=== PATIENT | female | born 1970 | race Caucasian/White ===

== ENCOUNTER 2016-04-15 18:06 | Observation (INO) | payer OTHER ==
[~2016-04-15] VITALS: Ht 165.1 cm; Wt 114.0 kg
[~2016-04-15 18:06] MED LIST: ACETAMINOPHEN-1 EAC1 PO; ADVAIR 250/501 DISK IH; ADVANCED EYE H1 EACH PO; ALBUTEROL SULF8.5 GM IH; ALLERGY10 M2 PO; ALLERGY10 MG PO; ALPRAZOLAM0.25 M2 PO; AMITRIPTYLINE H75 MG PO; AMITRIPTYLINE100 MG PO; ATARAX10 MG PO; ATIVAN1 MG PO; AUGMENTIN875 MG PO; AVINZA30 MG PO; AVINZA90 MG PO; BACLOFEN10 MG PO; BACTRIM,SEPT1 TABLET PO; BENTYL20 MG PO; BUTALBITAL-APA1 EACH PO; CEFDINIR300 MG PO; CEFUROXIME500 MG PO; CHERATUSSIN DA473 ML PO; CHILD ASPIRIN81 M1 PO; CIPROFLOXACIN500 M1 PO; CLARITIN-D 121 EACH PO; CLARITIN10 M3 PO; CLARITIN10 MG PO; COLACE100 MG PO; CYANOCOBALAM1000 MCG; CYCLOBENZAPRINE10 MG PO; Claritin,Alavart PO; DAILY VALUE1 EACH PO; DESYREL100 MG PO; DIAZEPAM2 MG PO; DILAUDID2 MG PO; DILAUDID4 MG PO; DILAUDID8 MG PO; DIOVAN HCT 11 TABLE1; DIOVAN HCT 11 TABLE1 PO; DIOVAN HCT 1601 EAC1 PO; DURAGESIC25 MCG TD; DURAGESIC75 MCG TD; ELAVIL100 MG PO; ELAVIL75 MG PO; Ecotrin PO; Elavil PO; FENOFIBRATE54 M1; FENTANYL1 EAC2 TD; FENTANYL1 EAC4 TD; FIORICET 50-301 EACH PO; FIORICET,ESG1 TABLET PO; FISH OIL 1,0001 EAC1 PO; FISH OIL 1,0001 EAC7 PO; FISH OIL 1,0001 EAC8 PO; FISH OIL 1,0001 EACH PO; FLAGYL250 MG PO; FLEXERIL10 MG PO; FLONASE16 G1 BOTH NARES; FLONASE16 G1 NS; FLOVENT DISKUS1 DIS2 IH; FLUOXETINE HCL20 MG PO; FLUOXETINE HCL40 MG PO; FLUTICASONE PRO16 GM BOTH NARES; GABAPENTIN300 MG PO; GABAPENTIN400 MG PO; GABAPENTIN600 MG PO; GABAPENTIN800 MG PO; GRALISE300 MG PO; HEPARIN SO5000 UNITS SC; HYDROCHLOROTHIA25 MG PO; HYDROMORPHONE HC4 MG PO; HYDROXYZINE HCL25 M1 PO; IMITREX25 MG PO; KADIAN30 MG PO; KADIAN60 MG PO; LEVAQUIN750 MG PO; LOFIBRA,TRIGLI160 MG PO; LOPRESSOR50 MG PO; LORATADINE; MAXIPIME1 GM IM; MAXIPIME2 GM IV; MEDROL 2 MG TAB2 MG PO; MEDROL DOSEPAK4 MG PO; MELATONIN3 MG PO; METFORMIN; METFORMIN HCL500 MG PO; METOPROLOL SUC100 MG PO; METOPROLOL SUCC50 MG PO; METOPROLOL TART50 MG PO; MIRALAX17 GM PO; MIRALAX255 GM PO; MORPHINE SULFAT15 M1 PO; MORPHINE SULFAT30 M1 PO; MORPHINE SULFAT30 M2; MORPHINE SULFAT30 M2 PO; MORPHINE SULFAT30 M5 PO; MS CONTIN,ORAMO30 MG PO; MULTI-DAY VITA1 EACH PO; MULTIVITAMIN1 EAC1 PO; MULTIVITAMIN1 EAC2 PO; NEURONTIN300 MG PO; NEURONTIN400 MG PO; NEURONTIN600 MG PO; NEURONTIN800 MG PO; NEXIUM40 MG PO; NITROFURANTOIN100 MG PO; NUCYNTA75 MG; OMEPRAZOLE; OMEPRAZOLE20 M2 PO; OMEPRAZOLE20 MG; OMEPRAZOLE20 MG PO; OMEPRAZOLE40 M1 PO; OXYCODONE HCL15 MG PO; OXYCODONE HCL30 MG PO; OXYCODONE15 MG PO; OXYCODONE30 MG PO; OXYCONTIN15 MG PO; OXYCONTIN30 MG PO; PHENERGAN DM SYR1 ML PO; PHENERGAN25 MG PR; POLYETHYLENE GL17 GM PO; PRAVASTATIN SOD40 MG PO; PREDNISONE10 MG PO; PREDNISONE20 MG PO; PREVACID; PRILOSEC40 MG PO; PROMETHAZINE HC25 M1 PO; PROTONIX40 MG PO; PROVENTIL,2.5 MG/3 M IH; PROZAC20 MG PO; PROZAC40 MG PO; PROzac PO; PYRIDIUM100 MG PO; RANITIDINE HCL150 M1 PO; REQUIP1 MG PO; RIFADIN300 MG PO; RIFAMPIN300 MG PO; ROPINIROLE HC0.25 MG PO; ROXICODONE30 MG PO; ROZEREM8 MG PO; Requip PO; SARAFEM20 M1 PO; SENNA8.6 M1 PO; SOMA350 MG; SYNTHROID75 MCG PO; TESSALON PERLE100 MG PO; THERAGRAN1 TABLET PO; TIZANIDINE HCL4 MG PO; TIZANIDINE HCL6 MG PO; TOPAMAX100 MG PO; TOPAMAX25 MG PO; TOPAMAX50 MG PO; TOPROL XL100 MG PO; TRAZODONE HCL150 MG PO; TRAZODONE HCL50 MG PO; TRICOR; TYLENOL REGULA325 MG PO; ULTRAM50 MG PO; VALIUM10 MG PO; VALIUM2 MG PO; VALIUM5 MG PO; VANCOMYCIN HCL1 GM IV; VANCOMYCIN1 GM/150 M IV; VANCOMYCIN1.25 GM/25 IV; VITAMIN B-12 IM; VITAMIN B-121000 MC1 SL; VITAMIN B12-FO1 EACH PO; VITAMIN B12-FO1 EACH SC; VITAMIN D2000 INTUN PO; XANAX0.25 MG PO; XARELTO15 MG PO; ZANAFLEX2 M1 PO; ZANAFLEX4 M1 PO; ZANAFLEX4 MG PO; ZITHROMAX Z-PA250 MG PO; ZOFRAN ODT4 MG PO; ZOFRAN4 MG PO; ZYRTEC10 M3 PO; Zantac PO; Zithromax PO; oxyCODONE PO
[2016-04-15 19:01] LABS: HEMATOCRIT 40.1 % (36.0-46.0); MCH 31.9 PG (29.0-34.0); MCHC 34.2 G/DL (30.0-36.0); MCV 93.3 FL (83-99); MEAN PLAT.VOLUME 9.1 uM^3 (9.5-12.4); PLATELET COUNT 325 K/uL (156-360); RBC DIS.WIDTH-CV 12.5 % (11.8-14.6); RBC DIS.WIDTH-SD 41.2 % (39-53); WHITE BLOOD COUNT 6.7 K/uL (4.1-10.2)
[2016-04-15 19:12] LABS: CHLORIDE 105 mEq/L (99-109); POTASSIUM 4.4 mEq/L (3.7-5.4); SODIUM 139 mEq/L (136-147)
[2016-04-15 19:14] LABS: GLUCOSE 130 mg/dL (70-99)
[2016-04-15 19:15] LABS: ANION GAP 9 MEQ/L (2-14)
[2016-04-15 19:17] LABS: GFR ESTIMATE (CALCULATED) > 59 mL/min/
[2016-04-15 19:18] LABS: UREA NITROGEN (BUN) 11 mg/dL (9-23)
[2016-04-15 19:45] LABS: TROP-I INTERPRETATION NEGATIVE; TROPONIN-I < 0.01 ng/mL (0.0-0.30)
[2016-04-15 20:16] LABS: INFLUENZA A VIRAL ANTIGEN NEGATIVE; INFLUENZA B VIRAL ANTIGEN NEGATIVE
[2016-04-15 22:33] LABS: ADD MIUA? YES; BILIRUBIN NEGATIVE; BLOOD NEGATIVE; COLOR YELLOW ((YELLOW)); GLUCOSE (STRIP) NEGATIVE; KETONES TRACE; LEUKOCYTES NEGATIVE; NITRITE NEGATIVE; PROTEIN (STRIP) 30; SPECIFIC GRAVITY 1.025 (1.000-1.030); UROBILINOGEN 0.2 MG/DL (0.2-1.0)
[2016-04-15 22:55] LABS: EPITHELIAL CELLS 3+; RED BLOOD CELLS NONE SEEN /HPF (0-5); WHITE BLOOD CELLS NONE SEEN /HPF (0-5)
[2016-04-15 22:56] LABS: BACTERIA RARE; CASTS NONE SEEN /LPF; CRYSTALS NONE SEEN; MUCUS NONE SEEN
[2016-04-16 01:14] LABS: TROP-I INTERPRETATION NEGATIVE; TROPONIN-I < 0.01 ng/mL (0.0-0.30)
[2016-04-16 06:30] LABS: HEMATOCRIT 39.2 % (36.0-46.0); MCH 31.3 PG (29.0-34.0); MCHC 33.4 G/DL (30.0-36.0); MCV 93.6 FL (83-99); MEAN PLAT.VOLUME 9.4 uM^3 (9.5-12.4); PLATELET COUNT 321 K/uL (156-360); RBC DIS.WIDTH-CV 12.7 % (11.8-14.6); RBC DIS.WIDTH-SD 42.1 % (39-53); RED BLOOD COUNT 4.19 M/uL (3.80-5.20); WHITE BLOOD COUNT 8.6 K/uL (4.1-10.2)
[2016-04-16 06:51] LABS: CHLORIDE 106 mEq/L (99-109); POTASSIUM 3.8 mEq/L (3.7-5.4); SODIUM 138 mEq/L (136-147)
[2016-04-16 06:52] LABS: GLUCOSE 104 mg/dL (70-99)
[2016-04-16 06:54] LABS: ANION GAP 11 MEQ/L (2-14); TROP-I INTERPRETATION NEGATIVE; TROPONIN-I < 0.01 ng/mL (0.0-0.30)
[2016-04-16 06:56] LABS: GFR ESTIMATE (CALCULATED) > 59 mL/min/
[2016-04-16 06:57] LABS: UREA NITROGEN (BUN) 11 mg/dL (9-23)
[2016-04-16 07:15] VITALS: BP 143/74
[2016-04-16] MEDS ORDERED: ZANAFLEX4 M1 PO (13:39)
[2016-04-16] MEDS ORDERED: OXYCODONE HCL30 MG PO (13:41)
[2016-04-16 16:28] VITALS: BP 139/64
[2016-04-16 21:36] VITALS: BP 141/70
[2016-04-17] VITALS: BP 161/99
[2016-04-17 04:45] VITALS: BP 131/74
[2016-04-17 06:25] LABS: METH RESISTANT S AUREUS PCR NEGATIVE (NEGATIVE)
[2016-04-17 06:26] LABS: PROBE CHECK PASS; SPECIMEN PROCESSING CONTROL PASS
[2016-04-17 07:58] VITALS: BP 145/75
[2016-04-17] MEDS ORDERED: CEFDINIR300 MG PO (11:11)
[2016-04-17] MEDS ORDERED: OMEPRAZOLE20 MG PO (11:11)
== END 2016-04-17 12:05 | disposition home or self-care (01) ==
LOC: EME → EDBD 18:06 → EME 18:06 → 5WEST 21:45 → EDOF 21:45 → 5WEST 04-16 06:58
PROVIDERS: Hospitalist; Nurse Practitioner Family
DX: R10.9 Unspecified abdominal pain (principal); R55 Syncope and collapse; R11.2 Nausea with vomiting, unspecified; R07.9 Chest pain, unspecified; I25.2 Old myocardial infarction; Z86.73 Personal history of transient ischemic attack (TIA), and cerebral infarction without residual deficits; G89.4 Chronic pain syndrome; Z79.891 Long term (current) use of opiate analgesic; R19.7 Diarrhea, unspecified; M54.9 Dorsalgia, unspecified; K58.9 Irritable bowel syndrome, unspecified; E86.0 Dehydration; I10 Essential (primary) hypertension; E11.9 Type 2 diabetes mellitus without complications; Z86.14 Personal history of Methicillin resistant Staphylococcus aureus infection; Z86.718 Personal history of other venous thrombosis and embolism; E24.2 Drug-induced Cushing's syndrome; Z88.8 Allergy status to other drugs, medicaments and biological substances; Z81.8 Family history of other mental and behavioral disorders
CPT/HCPCS: 70450; 71020; 74177; 80048; 81003; 84484; 85027; 87177; 87493; 87502; 87506; 87641; 93005; 93880; 94640; 99202; 99281; 99285; G0378; J2270; J2405; J7030; J7120; S0028

== ENCOUNTER 2016-06-25 16:56 | Emergency (ER) | payer OTHER ==
[~2016-06-25] VITALS: Ht 172.7 cm; Wt 113.6 kg
[2016-06-25 17:59] LABS: HEMATOCRIT 36.1 % (36.0-46.0); MCH 30.6 PG (29.0-34.0); MCHC 32.7 G/DL (30.0-36.0); MCV 93.5 FL (83-99); MEAN PLAT.VOLUME 9.5 uM^3 (9.5-12.4); PLATELET COUNT 277 K/uL (156-360); RBC DIS.WIDTH-CV 12.9 % (11.8-14.6); RED BLOOD COUNT 3.86 M/uL (3.80-5.20); WHITE BLOOD COUNT 8.1 K/uL (4.1-10.2)
[2016-06-25 18:06] LABS: CHLORIDE 103 mEq/L (99-109); POTASSIUM 4.4 mEq/L (3.7-5.4); SODIUM 137 mEq/L (136-147)
[2016-06-25 18:08] LABS: GLUCOSE 100 mg/dL (70-99)
[2016-06-25 18:10] LABS: ANION GAP 11 MEQ/L (2-14); TOTAL BILIRUBIN 0.3 mg/dL (0.0-1.0)
[2016-06-25 18:12] LABS: ALKALINE PHOSPHATASE 77 IU/L (3-129); GFR ESTIMATE (CALCULATED) 47 mL/min/
[2016-06-25 18:13] LABS: UREA NITROGEN (BUN) 16 mg/dL (9-23)
[2016-06-25 18:23] LABS: QUANTITATIVE HCG < 4.0 MIU/ML
[2016-06-25 18:39] LABS: LIPASE 11 U/L (1.0-51.0)
[2016-06-25 20:20] LABS: ADD MIUA? NO; BILIRUBIN NEGATIVE; BLOOD NEGATIVE; COLOR YELLOW ((YELLOW)); GLUCOSE (STRIP) NEGATIVE; KETONES NEGATIVE; LEUKOCYTES NEGATIVE; NITRITE NEGATIVE; PROTEIN (STRIP) NEGATIVE; SPECIFIC GRAVITY 1.016 (1.000-1.030); UCUL ADDED? NO; UROBILINOGEN 0.2 MG/DL (0.2-1.0)
[2016-06-25] MEDS ORDERED: PERCOCET 5/31 TABLET PO (20:40)
[2016-06-25] MEDS ORDERED: CARAFATE1 GM PO (20:40)
[2016-06-25] MEDS ORDERED: ZOFRAN ODT8 MG PO (20:40)
[2016-06-25] MEDS ORDERED: PROTONIX40 MG PO (20:40)
[2016-06-25 21:13] VITALS: BP 129/50
== END 2016-06-25 21:14 | disposition home or self-care (01) ==
LOC: EME 16:56
DX: K20.9 Esophagitis, unspecified (principal); K21.9 Gastro-esophageal reflux disease without esophagitis; E78.5 Hyperlipidemia, unspecified; E24.9 Cushing's syndrome, unspecified; I10 Essential (primary) hypertension; G89.29 Other chronic pain; M79.7 Fibromyalgia; I25.2 Old myocardial infarction; Z86.14 Personal history of Methicillin resistant Staphylococcus aureus infection; Z85.828 Personal history of other malignant neoplasm of skin
CPT/HCPCS: 70450; 74177; 80053; 81003; 83605; 83690; 84702; 85027; 99281; 99285; J2270; J2405; J7030; S0028

== ENCOUNTER 2016-07-22 20:50 | Emergency (ER) | payer OTHER ==
[~2016-07-22] VITALS: Ht 165.1 cm; Wt 109.0 kg
[~2016-07-22 20:50] MED LIST changes: +CARAFATE1 GM PO; +PERCOCET 5/31 TABLET PO; +ZOFRAN ODT8 MG PO
[2016-07-22 21:19] LABS: POINT-OF-CARE METER ID UU13113778
[2016-07-22 21:55] LABS: HEMATOCRIT 35.5 % (36.0-46.0); MCH 30.3 PG (29.0-34.0); MCHC 31.8 G/DL (30.0-36.0); MCV 95.2 FL (83-99); MEAN PLAT.VOLUME 9.3 uM^3 (9.5-12.4); PLATELET COUNT 223 K/uL (156-360); RBC DIS.WIDTH-CV 13.4 % (11.8-14.6); RBC DIS.WIDTH-SD 46.6 % (39-53); RED BLOOD COUNT 3.73 M/uL (3.80-5.20)
[2016-07-22 21:56] LABS: WHITE BLOOD COUNT 5.6 K/uL (4.1-10.2)
[2016-07-22 22:01] LABS: CHLORIDE 108 mEq/L (99-109); POTASSIUM 4.6 mEq/L (3.7-5.4); SODIUM 142 mEq/L (136-147)
[2016-07-22 22:03] LABS: GLUCOSE 103 mg/dL (70-99)
[2016-07-22 22:04] LABS: ANION GAP 9 MEQ/L (2-14)
[2016-07-22 22:07] LABS: GFR ESTIMATE (CALCULATED) > 59 mL/min/
[2016-07-22 22:08] LABS: UREA NITROGEN (BUN) 17 mg/dL (9-23)
[2016-07-23 00:27] VITALS: BP 144/88
== END 2016-07-23 00:29 | disposition home or self-care (01) ==
LOC: EME 20:50
PROVIDERS: Emergency Medicine
DX: T78.40XA Allergy, unspecified, initial encounter (principal); G89.29 Other chronic pain; M79.7 Fibromyalgia; E78.5 Hyperlipidemia, unspecified; I10 Essential (primary) hypertension; I25.2 Old myocardial infarction; K21.9 Gastro-esophageal reflux disease without esophagitis; E24.9 Cushing's syndrome, unspecified; Z85.828 Personal history of other malignant neoplasm of skin
CPT/HCPCS: 80048; 82948; 85027; 93005; 99281; 99285; J2930; S0028

== ENCOUNTER 2016-08-08 01:53 | Emergency (ER) | payer OTHER ==
[~2016-08-08] VITALS: Ht 165.1 cm; Wt 109.1 kg
[2016-08-08 02:42] LABS: HEMATOCRIT 42.9 % (36.0-46.0); MCH 30.5 PG (29.0-34.0); MCHC 33.3 G/DL (30.0-36.0); MCV 91.5 FL (83-99); MEAN PLAT.VOLUME 9.4 uM^3 (9.5-12.4); PLATELET COUNT 356 K/uL (156-360); RBC DIS.WIDTH-CV 13.4 % (11.8-14.6); RBC DIS.WIDTH-SD 45.1 % (39-53); RED BLOOD COUNT 4.69 M/uL (3.80-5.20); WHITE BLOOD COUNT 8.5 K/uL (4.1-10.2)
[2016-08-08 02:48] LABS: CHLORIDE 103 mEq/L (99-109); POTASSIUM 4.5 mEq/L (3.7-5.4); SODIUM 140 mEq/L (136-147)
[2016-08-08 02:50] LABS: GLUCOSE 120 mg/dL (70-99)
[2016-08-08 02:51] LABS: ANION GAP 13 MEQ/L (2-14)
[2016-08-08 02:54] LABS: GFR ESTIMATE (CALCULATED) > 59 mL/min/
[2016-08-08 02:55] LABS: UREA NITROGEN (BUN) 11 mg/dL (9-23)
[2016-08-08 02:56] LABS: TROP-I INTERPRETATION NEGATIVE; TROPONIN-I < 0.01 ng/mL (0.0-0.30)
[2016-08-08] MEDS ORDERED: VALIUM5 MG PO (05:50)
[2016-08-08 06:07] VITALS: BP 116/63
== END 2016-08-08 05:59 | disposition home or self-care (01) ==
LOC: EME 01:53
DX: R07.89 Other chest pain (principal); M62.838 Other muscle spasm; M79.7 Fibromyalgia; E78.5 Hyperlipidemia, unspecified; I10 Essential (primary) hypertension; I25.2 Old myocardial infarction; K21.9 Gastro-esophageal reflux disease without esophagitis
CPT/HCPCS: 70491; 71020; 71275; 80048; 84484; 85027; 93005; 99281; 99285; J1100; J7030

== ENCOUNTER 2016-08-15 12:13 | Emergency (ER) | payer OTHER ==
[~2016-08-15] VITALS: Ht 165.1 cm; Wt 120.1 kg
[2016-08-15 12:54] LABS: EOSINOPHIL (%) 2.6 % (0-5); EOSINOPHIL COUNT 0.2 K/uL (0-0.3); HEMATOCRIT 36.2 % (36.0-46.0); IMMATURE GRANULOCYTE (%) 0.3 % (0.0-0.7); INSTRUMENT ABS NEUTROPHIL CT 2.9 K/uL; LYMPHOCYTE COUNT 2.7 K/uL (1.0-2.8); MCH 30.3 PG (29.0-34.0); MCV 94.5 FL (83-99); MEAN PLAT.VOLUME 9.4 uM^3 (9.5-12.4); MONOCYTE (%) 5.7 % (3-12); MONOCYTE COUNT 0.4 K/uL (0-0.8); NEUTROPHIL (%) 46.6 % (45-76); NEUTROPHIL COUNT 2.9 K/uL (1.8-6.4); PLATELET COUNT 252 K/uL (156-360); RBC DIS.WIDTH-CV 13.9 % (11.8-14.6); RBC DIS.WIDTH-SD 48.1 % (39-53); RED BLOOD COUNT 3.83 M/uL (3.80-5.20); WHITE BLOOD COUNT 6.2 K/uL (4.1-10.2)
[2016-08-15 12:58] LABS: CHLORIDE 106 mEq/L (99-109); POTASSIUM 4.5 mEq/L (3.7-5.4); SODIUM 139 mEq/L (136-147)
[2016-08-15 12:59] LABS: GLUCOSE 123 mg/dL (70-99)
[2016-08-15 13:01] LABS: ANION GAP 11 MEQ/L (2-14)
[2016-08-15 13:03] LABS: GFR ESTIMATE (CALCULATED) > 59 mL/min/
[2016-08-15 13:04] LABS: UREA NITROGEN (BUN) 20 mg/dL (9-23)
[2016-08-15 13:08] LABS: TROP-I INTERPRETATION NEGATIVE; TROPONIN-I < 0.01 ng/mL (0.0-0.30)
[2016-08-15 17:40] VITALS: BP 126/79
[2016-08-21 11:10] LABS: POINT-OF-CARE METER ID UU14100415
== END 2016-08-15 17:44 | disposition home or self-care (01) ==
LOC: EME → EDBD 12:13 → EME 12:13
PROVIDERS: Emergency Medicine
DX: S09.90XA Unspecified injury of head, initial encounter (principal); S40.011A Contusion of right shoulder, initial encounter; S70.02XA Contusion of left hip, initial encounter; W18.30XA Fall on same level, unspecified, initial encounter; M79.7 Fibromyalgia; E78.5 Hyperlipidemia, unspecified; I10 Essential (primary) hypertension; I25.2 Old myocardial infarction; K21.9 Gastro-esophageal reflux disease without esophagitis
CPT/HCPCS: 70450; 71010; 72125; 73030; 73060; 73502; 80048; 82948; 84484; 85025; 93005; 99281; 99285; J7030

== ENCOUNTER 2016-09-13 15:10 | Emergency (ER) | payer OTHER ==
[~2016-09-13] VITALS: Ht 165.1 cm; Wt 120.1 kg
[2016-09-13 16:41] LABS: ADD MIUA? YES; BILIRUBIN NEGATIVE; BLOOD NEGATIVE; COLOR YELLOW ((YELLOW)); GLUCOSE (STRIP) NEGATIVE; KETONES NEGATIVE; LEUKOCYTES NEGATIVE; NITRITE NEGATIVE; PROTEIN (STRIP) 30; UROBILINOGEN 0.2 MG/DL (0.2-1.0)
[2016-09-13 17:06] LABS: HEMATOCRIT 37.1 % (36.0-46.0); MCH 30.7 PG (29.0-34.0); MCHC 32.6 G/DL (30.0-36.0); MCV 94.2 FL (83-99); MEAN PLAT.VOLUME 9.1 uM^3 (9.5-12.4); PLATELET COUNT 233 K/uL (156-360); RBC DIS.WIDTH-CV 13.2 % (11.8-14.6); RBC DIS.WIDTH-SD 45.5 % (39-53); RED BLOOD COUNT 3.94 M/uL (3.80-5.20); WHITE BLOOD COUNT 6.8 K/uL (4.1-10.2)
[2016-09-13 17:14] LABS: CHLORIDE 101 mEq/L (99-109); POTASSIUM 4.5 mEq/L (3.7-5.4); SODIUM 139 mEq/L (136-147)
[2016-09-13 17:15] LABS: EPITHELIAL CELLS 1+ /HPF; RED BLOOD CELLS 0-5 /HPF (0-5); WHITE BLOOD CELLS 0-5 /HPF (0-5)
[2016-09-13 17:16] LABS: BACTERIA 1+ /HPF; CASTS PRESENT /LPF; CRYSTALS PRESENT; MUCUS 3+ /LPF
[2016-09-13 17:17] LABS: URIC ACID CRYSTALS 2+ /HPF
[2016-09-13 17:17] LABS: GLUCOSE 103 mg/dL (70-99)
[2016-09-13 17:18] LABS: ANION GAP 12 MEQ/L (2-14)
[2016-09-13 17:19] LABS: TOTAL BILIRUBIN 0.2 mg/dL (0.0-1.0)
[2016-09-13 17:20] LABS: ALKALINE PHOSPHATASE 87 IU/L (3-129); GFR ESTIMATE (CALCULATED) > 59 mL/min/
[2016-09-13 17:21] LABS: UREA NITROGEN (BUN) 11 mg/dL (9-23)
[2016-09-13] MEDS ORDERED: ZOFRAN ODT4 MG PO (18:37)
[2016-09-13 19:58] VITALS: BP 110/67
== END 2016-09-13 20:00 | disposition home or self-care (01) ==
LOC: EME 15:10
PROVIDERS: Nurse Practitioner Family
DX: R55 Syncope and collapse (principal); R11.2 Nausea with vomiting, unspecified; I10 Essential (primary) hypertension; Z90.49 Acquired absence of other specified parts of digestive tract; Z90.710 Acquired absence of both cervix and uterus; Z86.14 Personal history of Methicillin resistant Staphylococcus aureus infection
CPT/HCPCS: 80053; 81003; 85027; 93005; 99281; 99284; J2405; J7030

== ENCOUNTER 2016-10-12 18:46 | Emergency (ER) | payer OTHER ==
[~2016-10-12] VITALS: Ht 165.1 cm; Wt 109.1 kg
[2016-10-12 20:56] LABS: MCH 31.5 PG (29.0-34.0); MCHC 33.4 G/DL (30.0-36.0); MCV 94.3 FL (83-99); PLATELET COUNT 253 K/uL (156-360); RBC DIS.WIDTH-CV 13.2 % (11.8-14.6); RBC DIS.WIDTH-SD 45.3 % (39-53); RED BLOOD COUNT 3.71 M/uL (3.80-5.20); WHITE BLOOD COUNT 4.8 K/uL (4.1-10.2)
[2016-10-12 21:03] LABS: PROTHROMBIN TIME 11.3 SEC (10.2-12.9)
[2016-10-12 21:06] LABS: PTT 32.1 SEC (25-37)
[2016-10-12 21:11] LABS: CHLORIDE 106 mEq/L (99-109); POTASSIUM 4.1 mEq/L (3.7-5.4); SODIUM 141 mEq/L (136-147)
[2016-10-12 21:12] LABS: GLUCOSE 98 mg/dL (70-99)
[2016-10-12 21:14] LABS: ANION GAP 11 MEQ/L (2-14)
[2016-10-12 21:16] LABS: GFR ESTIMATE (CALCULATED) > 59 mL/min/
[2016-10-12 21:17] LABS: UREA NITROGEN (BUN) 17 mg/dL (9-23)
[2016-10-12 21:21] LABS: TROP-I INTERPRETATION NEGATIVE; TROPONIN-I < 0.01 ng/mL (0.0-0.30)
[2016-10-12 21:49] LABS: BILIRUBIN NEGATIVE; BLOOD NEGATIVE; COLOR YELLOW ((YELLOW)); GLUCOSE (STRIP) NEGATIVE; KETONES NEGATIVE; LEUKOCYTES NEGATIVE; NITRITE NEGATIVE; PROTEIN (STRIP) 30; SPECIFIC GRAVITY 1.027 (1.000-1.030); UROBILINOGEN 0.2 MG/DL (0.2-1.0)
[2016-10-12 21:56] LABS: ADD MIUA? NO; UCUL ADDED? NO
[2016-10-12 23:36] LABS: TROP-I INTERPRETATION NEGATIVE; TROPONIN-I < 0.01 ng/mL (0.0-0.30)
[2016-10-12 23:53] VITALS: BP 138/87
== END 2016-10-12 23:54 | disposition home or self-care (01) ==
LOC: EME 18:46
PROVIDERS: Physician Assistant Medical
DX: R60.0 Localized edema (principal); I10 Essential (primary) hypertension; E11.9 Type 2 diabetes mellitus without complications; M79.7 Fibromyalgia; K21.9 Gastro-esophageal reflux disease without esophagitis; K58.9 Irritable bowel syndrome, unspecified; E24.9 Cushing's syndrome, unspecified; I25.2 Old myocardial infarction; Z86.711 Personal history of pulmonary embolism; Z86.718 Personal history of other venous thrombosis and embolism; Z86.73 Personal history of transient ischemic attack (TIA), and cerebral infarction without residual deficits
CPT/HCPCS: 80048; 81003; 84484; 85027; 85610; 85730; 93005; 93971; 99281; 99284

== ENCOUNTER 2016-11-05 11:04 | Emergency (ER) | payer OTHER ==
[~2016-11-05] VITALS: Ht 165.1 cm; Wt 109.0 kg
[2016-11-05] MEDS ORDERED: PREDNISONE20 MG PO (13:52)
[2016-11-05] MEDS ORDERED: ATARAX,VISTARIL25 MG PO (13:52)
[2016-11-05] MEDS ORDERED: ZANTAC150 MG PO (13:52)
[2016-11-05 14:08] VITALS: BP 148/78
[2016-11-05] MEDS ORDERED: ZOFRAN ODT4 MG PO (14:09)
== END 2016-11-05 14:08 | disposition home or self-care (01) ==
LOC: EXP 11:04 → EME 11:04 → EXP 14:08
DX: T46.4X5A Adverse effect of angiotensin-converting-enzyme inhibitors, initial encounter (principal); R21 Rash and other nonspecific skin eruption; L29.9 Pruritus, unspecified; I10 Essential (primary) hypertension; E78.5 Hyperlipidemia, unspecified; M79.7 Fibromyalgia; I25.2 Old myocardial infarction; K21.9 Gastro-esophageal reflux disease without esophagitis; E24.9 Cushing's syndrome, unspecified; Z85.828 Personal history of other malignant neoplasm of skin; Z86.14 Personal history of Methicillin resistant Staphylococcus aureus infection
CPT/HCPCS: 99281; 99285; J1200; J2405; J2930; J3010; S0028

== ENCOUNTER 2016-11-22 14:42 | Emergency (ER) | payer OTHER ==
[~2016-11-22] VITALS: Ht 165.1 cm; Wt 120.4 kg
[~2016-11-22 14:42] MED LIST changes: +ATARAX,VISTARIL25 MG PO; +ZANTAC150 MG PO
[2016-11-22 18:09] VITALS: BP 140/84
== END 2016-11-22 18:10 | disposition home or self-care (01) ==
LOC: EME 14:42
DX: M54.5 Low back pain (principal); E78.5 Hyperlipidemia, unspecified; I10 Essential (primary) hypertension; I25.2 Old myocardial infarction; K21.9 Gastro-esophageal reflux disease without esophagitis; D64.9 Anemia, unspecified
CPT/HCPCS: 72100; 72125; 99281; 99284; J1170; J2405

== ENCOUNTER 2016-12-01 17:34 | Emergency (ER) | payer OTHER ==
[~2016-12-01] VITALS: Ht 165.1 cm; Wt 109.5 kg
[2016-12-01 21:49] VITALS: BP 115/72
== END 2016-12-01 22:04 | disposition home or self-care (01) ==
LOC: EME 17:34
DX: S29.012A Strain of muscle and tendon of back wall of thorax, initial encounter (principal); S80.01XA Contusion of right knee, initial encounter; W17.89XA Other fall from one level to another, initial encounter; Y92.009 Unspecified place in unspecified non-institutional (private) residence as the place of occurrence of the external cause; R03.0 Elevated blood-pressure reading, without diagnosis of hypertension; I25.2 Old myocardial infarction; Z85.828 Personal history of other malignant neoplasm of skin; I34.1 Nonrheumatic mitral (valve) prolapse; M79.7 Fibromyalgia; K21.9 Gastro-esophageal reflux disease without esophagitis; E78.5 Hyperlipidemia, unspecified; I10 Essential (primary) hypertension; Z79.891 Long term (current) use of opiate analgesic
CPT/HCPCS: 72100; 73564; 99281; 99284; J2270

== ENCOUNTER 2017-03-27 01:56 | Emergency (ER) | payer OTHER ==
[~2017-03-27] VITALS: Ht 165.1 cm; Wt 120.5 kg
[~2017-03-27 01:56] MED LIST changes: +SPIRONOLACTONE25 MG PO
[2017-03-27 02:21] VITALS: BP 141/85
== END 2017-03-27 04:50 | disposition left against medical advice (07) ==
LOC: EME 01:56
DX: M25.551 Pain in right hip (principal); M25.571 Pain in right ankle and joints of right foot; W06.XXXA Fall from bed, initial encounter; Z53.21 Procedure and treatment not carried out due to patient leaving prior to being seen by health care provider

== ENCOUNTER 2017-03-29 16:00 | Emergency (ER) | payer OTHER ==
[~2017-03-29] VITALS: Ht 165.1 cm; Wt 99.2 kg
[~2017-03-29 16:00] MED LIST changes: +OXYCODONE HCL20 M1 PO
[2017-03-29 16:30] LABS: HEMATOCRIT 38.7 % (36.0-46.0); HEMOGLOBIN 12.5 G/DL (11.9-15.5); MCH 30.1 PG (29.0-34.0); MCHC 32.3 G/DL (30.0-36.0); MCV 93.3 FL (83-99); PLATELET COUNT 287 K/uL (156-360); RBC DIS.WIDTH-CV 13.6 % (11.8-14.6); RBC DIS.WIDTH-SD 46.1 % (39-53); RED BLOOD COUNT 4.15 M/uL (3.80-5.20); WHITE BLOOD COUNT 7.3 K/uL (4.1-10.2)
[2017-03-29 16:41] LABS: CHLORIDE 105 mEq/L (99-109)
[2017-03-29 16:42] LABS: POTASSIUM 4.5 mEq/L (3.7-5.4); SODIUM 137 mEq/L (136-147)
[2017-03-29 16:43] LABS: GLUCOSE 114 mg/dL (70-99)
[2017-03-29 16:47] LABS: GFR ESTIMATE (CALCULATED) > 59 mL/min/
[2017-03-29 16:48] LABS: UREA NITROGEN (BUN) 19 mg/dL (9-23)
[2017-03-29 22:08] LABS: APPEARANCE CLEAR ((CLEAR)); BILIRUBIN NEGATIVE; BLOOD NEGATIVE; COLOR YELLOW ((YELLOW)); GLUCOSE (STRIP) NEGATIVE; KETONES NEGATIVE; LEUKOCYTES NEGATIVE; NITRITE NEGATIVE; PROTEIN (STRIP) NEGATIVE; SPECIFIC GRAVITY 1.023 (1.000-1.030); UROBILINOGEN 0.2 MG/DL (0.2-1.0)
[2017-03-29 22:17] LABS: AMPHETAMINE NEGATIVE (500 ng/mL); BARBITURATES NEGATIVE (200 ng/mL); BENZODIAZEPINES PRESUMPTIVE POSITIVE (150 ng/mL); BUPRENORPHINE NEGATIVE (10 ng/mL); COCAINE NEGATIVE (150 ng/mL); METHADONE NEGATIVE (200 ng/mL); METHAMPHETAMINE NEGATIVE (500 ng/mL); OPIATES (MORPHINE) PRESUMPTIVE POSITIVE (100 ng/mL); OXYCODONE PRESUMPTIVE POSITIVE (100 ng/mL); PHENCYCLIDINE NEGATIVE (25 ng/mL); PROPOXYPHENE NEGATIVE (300 ng/mL); THC CANNABINOIDS NEGATIVE (50 ng/mL); TRICYCLIC ANTIDEPRESSANTS PRESUMPTIVE POSITIVE (300 ng/mL)
[2017-03-29 22:49] LABS: BENZODIAZEPINES, URINE SCREEN Negative (200 ng/mL)
[2017-03-29] MEDS ORDERED: LIDODERM 5% P1 PATCH TD (23:40)
[2017-03-30 00:15] VITALS: BP 106/78
== END 2017-03-30 01:21 | disposition home or self-care (01) ==
LOC: EME 16:00
PROVIDERS: Nurse Practitioner Family; Physician Assistant
DX: G57.01 Lesion of sciatic nerve, right lower limb (principal); S83.91XA Sprain of unspecified site of right knee, initial encounter; W06.XXXA Fall from bed, initial encounter; Y92.003 Bedroom of unspecified non-institutional (private) residence as the place of occurrence of the external cause; R41.0 Disorientation, unspecified; M16.11 Unilateral primary osteoarthritis, right hip; M17.11 Unilateral primary osteoarthritis, right knee; E66.01 Morbid (severe) obesity due to excess calories; Z68.36 Body mass index [BMI] 36.0-36.9, adult; I10 Essential (primary) hypertension; Z90.710 Acquired absence of both cervix and uterus; Z85.828 Personal history of other malignant neoplasm of skin; Z79.891 Long term (current) use of opiate analgesic
CPT/HCPCS: 70450; 71046; 73502; 73560; 73564; 73700; 80048; 81003; 83880; 84999; 85027; 93005; 99281; 99285

== ENCOUNTER 2017-04-01 17:17 | Inpatient (IN) | payer OTHER ==
[~2017-04-01] VITALS: Ht 165.1 cm; Wt 123.0 kg
[~2017-04-01 17:17] MED LIST changes: +LIDODERM 5% P1 PATCH TD
[2017-04-01 23:20] LABS: BASOPHIL (%) 0.3 % (0-1); EOSINOPHIL (%) 2.6 % (0-5); EOSINOPHIL COUNT 0.2 K/uL (0-0.3); HEMATOCRIT 38.3 % (36.0-46.0); IMMATURE GRANULOCYTE (%) 0.3 % (0.0-0.7); LYMPHOCYTE (%) 28.8 % (15-42); MCH 29.9 PG (29.0-34.0); MCHC 31.3 G/DL (30.0-36.0); MCV 95.5 FL (83-99); MONOCYTE (%) 5.5 % (3-12); MONOCYTE COUNT 0.4 K/uL (0-0.8); NEUTROPHIL (%) 62.5 % (45-76); NEUTROPHIL COUNT 4.4 K/uL (1.8-6.4); PLATELET COUNT 272 K/uL (156-360); RBC DIS.WIDTH-CV 13.7 % (11.8-14.6); RBC DIS.WIDTH-SD 47.8 % (39-53); RED BLOOD COUNT 4.01 M/uL (3.80-5.20)
[2017-04-01 23:27] LABS: CHLORIDE 106 mEq/L (99-109); SODIUM 140 mEq/L (136-147)
[2017-04-01 23:29] LABS: GLUCOSE 127 mg/dL (70-99)
[2017-04-01 23:33] LABS: CREATININE 0.9 mg/dL (0.6-1.3); GFR ESTIMATE (CALCULATED) > 59 mL/min/
[2017-04-01 23:34] LABS: UREA NITROGEN (BUN) 19 mg/dL (9-23)
[2017-04-01 23:49] LABS: CREATINE KINASE 9325 IU/L (1-294)
[2017-04-02] MEDS ORDERED: ZYRTEC10 M3 PO (08:10)
[2017-04-02] MEDS ORDERED: ALDACTONE25 MG PO (08:12)
[2017-04-02] MEDS ORDERED: OMEPRAZOLE20 MG PO (08:15)
[2017-04-02] MEDS ORDERED: ACID REDUCER 1150 MG PO (08:15)
[2017-04-02] MEDS ORDERED: BACTRIM,SEPT1 TABLE1 PO (08:16)
[2017-04-02] MEDS ORDERED: AMITRIPTYLINE H75 MG PO (08:16)
[2017-04-02 09:08] LABS: ALBUMIN 3.6 g/dL (3.2-4.8)
[2017-04-02 09:10] LABS: TOTAL PROTEIN 6.2 g/dL (6.4-8.3)
[2017-04-02 09:12] LABS: TOTAL BILIRUBIN 0.3 mg/dL (0.0-1.0)
[2017-04-02 09:13] LABS: ALKALINE PHOSPHATASE 88 IU/L (3-129)
[2017-04-02 09:14] LABS: TROP-I INTERPRETATION NEGATIVE; TROPONIN-I < 0.01 ng/mL (0.0-0.30)
[2017-04-02 09:15] LABS: CHLORIDE 109 mEq/L (99-109); POTASSIUM 4.1 mEq/L (3.7-5.4); SODIUM 139 mEq/L (136-147)
[2017-04-02 09:16] LABS: ALT (GPT) 51 IU/L (3-49); AST (GOT) 144 IU/L (2-34); DIRECT BILIRUBIN 0.1 mg/dL (0.0-0.3); GLUCOSE 124 mg/dL (70-99); URIC ACID 6.8 mg/dL (3.1-9.2)
[2017-04-02 09:20] LABS: CREATININE 0.7 mg/dL (0.6-1.3); GFR ESTIMATE (CALCULATED) > 59 mL/min/
[2017-04-02 09:21] LABS: UREA NITROGEN (BUN) 18 mg/dL (9-23)
[2017-04-02 11:34] LABS: CK-MB 24.2 ng/mL (0.0-4.9)
[2017-04-02 11:41] LABS: CKMB RELATIVE INDEX 0.4 (0.0-3.9); TOTAL CK 6767 IU/L (1-294)
[2017-04-02 11:49] LABS: CREATINE KINASE 6767 IU/L (1-294)
[2017-04-02 17:38] VITALS: BP 156/78
[2017-04-02 21:15] VITALS: BP 138/63
[2017-04-03] VITALS (7 sets, daily range): BP systolic 135–170; BP diastolic 60–77
[2017-04-03 06:52] LABS: BASOPHIL (%) 0.2 % (0-1); EOSINOPHIL (%) 1.9 % (0-5); EOSINOPHIL COUNT 0.1 K/uL (0-0.3); HEMATOCRIT 32.3 % (36.0-46.0); HEMOGLOBIN 10.3 G/DL (11.9-15.5); LYMPHOCYTE (%) 29.1 % (15-42); LYMPHOCYTE COUNT 1.3 K/uL (1.0-2.8); MCH 29.8 PG (29.0-34.0); MCHC 31.9 G/DL (30.0-36.0); MCV 93.4 FL (83-99); MONOCYTE (%) 6.3 % (3-12); MONOCYTE COUNT 0.3 K/uL (0-0.8); NEUTROPHIL (%) 62.5 % (45-76); NEUTROPHIL COUNT 2.7 K/uL (1.8-6.4); PLATELET COUNT 244 K/uL (156-360); RBC DIS.WIDTH-CV 13.6 % (11.8-14.6); RBC DIS.WIDTH-SD 46.2 % (39-53); RED BLOOD COUNT 3.46 M/uL (3.80-5.20); WHITE BLOOD COUNT 4.3 K/uL (4.1-10.2)
[2017-04-03 07:18] LABS: ALBUMIN 3.2 G/DL (3.2-4.8); ALKALINE PHOSPHATASE 72 IU/L (3-129); ALT (GPT) 32 IU/L (3-49); AST (GOT) 76 IU/L (2-34); CHLORIDE 111 MEQ/L (99-109); CREATININE 0.5 MG/DL (0.6-1.3); GFR ESTIMATE (CALCULATED) > 59 mL/min/; GLUCOSE 126 mg/dL (70-99); POTASSIUM 3.7 MEQ/L (3.7-5.4); SODIUM 144 MEQ/L (136-147); TOTAL BILIRUBIN 0.3 MG/DL (0.0-1.0); TOTAL PROTEIN 5.4 G/DL (6.4-8.3); UREA NITROGEN (BUN) 11 mg/dL (9-23)
[2017-04-03 08:01] LABS: CREATINE KINASE 3364 IU/L (1-294)
[2017-04-03 08:06] LABS: TROP-I INTERPRETATION NEGATIVE; TROPONIN-I < 0.01 ng/mL (0.0-0.30)
[2017-04-04 03:54] VITALS: BP 121/60
[2017-04-04 07:12] LABS: BASOPHIL (%) 0.4 % (0-1); EOSINOPHIL (%) 3.1 % (0-5); EOSINOPHIL COUNT 0.2 K/uL (0-0.3); HEMATOCRIT 31.5 % (36.0-46.0); HEMOGLOBIN 9.8 G/DL (11.9-15.5); IMMATURE GRANULOCYTE (%) 0.2 % (0.0-0.7); LYMPHOCYTE COUNT 2.2 K/uL (1.0-2.8); MCH 29.4 PG (29.0-34.0); MCHC 31.1 G/DL (30.0-36.0); MCV 94.6 FL (83-99); MONOCYTE (%) 4.8 % (3-12); MONOCYTE COUNT 0.2 K/uL (0-0.8); NEUTROPHIL (%) 45.5 % (45-76); NEUTROPHIL COUNT 2.2 K/uL (1.8-6.4); PLATELET COUNT 239 K/uL (156-360); RBC DIS.WIDTH-CV 13.6 % (11.8-14.6); RBC DIS.WIDTH-SD 47.3 % (39-53); RED BLOOD COUNT 3.33 M/uL (3.80-5.20); WHITE BLOOD COUNT 4.8 K/uL (4.1-10.2)
[2017-04-04 07:57] LABS: ALKALINE PHOSPHATASE 67 IU/L (3-129); ALT (GPT) 33 IU/L (3-49); AST (GOT) 50 IU/L (2-34); CHLORIDE 109 MEQ/L (99-109); CREATININE 0.7 MG/DL (0.6-1.3); GFR ESTIMATE (CALCULATED) > 59 mL/min/; GLUCOSE 128 mg/dL (70-99); POTASSIUM 3.9 MEQ/L (3.7-5.4); SODIUM 143 MEQ/L (136-147); TOTAL BILIRUBIN 0.3 MG/DL (0.0-1.0); TOTAL PROTEIN 5.1 G/DL (6.4-8.3); UREA NITROGEN (BUN) 14 mg/dL (9-23)
[2017-04-04 07:58] LABS: CREATINE KINASE 1367 IU/L (1-294)
[2017-04-04 08:00] VITALS: BP 157/72
[2017-04-04 11:41] VITALS: BP 194/90
[2017-04-04 16:16] VITALS: BP 139/63
[2017-04-04 20:32] VITALS: BP 141/78
[2017-04-05 00:05] VITALS: BP 134/62
[2017-04-05 04:09] VITALS: BP 131/64
[2017-04-05 07:07] LABS: BASOPHIL (%) 0.2 % (0-1); EOSINOPHIL (%) 3.2 % (0-5); EOSINOPHIL COUNT 0.2 K/uL (0-0.3); HEMATOCRIT 30.9 % (36.0-46.0); HEMOGLOBIN 9.9 G/DL (11.9-15.5); IMMATURE GRANULOCYTE (%) 0.5 % (0.0-0.7); LYMPHOCYTE (%) 46.3 % (15-42); LYMPHOCYTE COUNT 2.6 K/uL (1.0-2.8); MCH 29.7 PG (29.0-34.0); MCV 92.8 FL (83-99); MONOCYTE (%) 6.1 % (3-12); MONOCYTE COUNT 0.3 K/uL (0-0.8); NEUTROPHIL (%) 43.7 % (45-76); NEUTROPHIL COUNT 2.4 K/uL (1.8-6.4); PLATELET COUNT 256 K/uL (156-360); RBC DIS.WIDTH-CV 13.8 % (11.8-14.6); RBC DIS.WIDTH-SD 46.4 % (39-53); RED BLOOD COUNT 3.33 M/uL (3.80-5.20); WHITE BLOOD COUNT 5.6 K/uL (4.1-10.2)
[2017-04-05 07:27] VITALS: BP 127/59
[2017-04-05 07:30] LABS: CHLORIDE 106 MEQ/L (99-109); CREATININE 0.7 MG/DL (0.6-1.3); GFR ESTIMATE (CALCULATED) > 59 mL/min/; GLUCOSE 135 mg/dL (70-99); SODIUM 141 MEQ/L (136-147); UREA NITROGEN (BUN) 13 mg/dL (9-23)
[2017-04-05 08:03] LABS: CREATINE KINASE 727 IU/L (1-294)
[2017-04-05 11:48] VITALS: BP 153/71
[2017-04-05 16:04] VITALS: BP 152/68
[2017-04-05] MEDS ORDERED: ZANAFLEX4 MG PO (17:11)
[2017-04-05] MEDS ORDERED: OXYCODONE HCL20 M1 PO (17:11)
[2017-04-05 20:07] VITALS: BP 115/64
[2017-04-06 00:23] VITALS: BP 108/66
[2017-04-06 08:31] VITALS: BP 139/67
[2017-04-06 12:38] VITALS: BP 151/76
[2017-04-06 15:35] VITALS: BP 143/67
[2017-04-06 19:56] VITALS: BP 159/68
[2017-04-07 00:44] VITALS: BP 137/69
[2017-04-07 04:00] VITALS: BP 141/70
[2017-04-07 08:21] VITALS: BP 140/67
[2017-04-07 12:02] VITALS: BP 143/77
[2017-04-07 17:17] VITALS: BP 180/90
[2017-04-07 20:41] VITALS: BP 143/80
[2017-04-08 02:00] VITALS: BP 170/84
[2017-04-08 05:47] VITALS: BP 113/59
[2017-04-08 07:55] VITALS: BP 135/75
[2017-04-08 12:00] VITALS: BP 113/72
[2017-04-08 16:00] VITALS: BP 156/83
[2017-04-08 20:32] VITALS: BP 128/89
[2017-04-09 00:03] VITALS: BP 163/92
[2017-04-09 03:41] VITALS: BP 137/65
[2017-04-09 08:45] VITALS: BP 139/76
[2017-04-09 16:23] VITALS: BP 164/82
[2017-04-09 23:57] VITALS: BP 150/82
[2017-04-10 08:26] VITALS: BP 165/72
[2017-04-10 17:32] VITALS: BP 160/93
[2017-04-11 01:21] VITALS: BP 113/67
[2017-04-11 07:59] VITALS: BP 129/69
[2017-04-11 16:26] VITALS: BP 129/72
[2017-04-11 22:04] VITALS: BP 113/69
[2017-04-12 00:29] VITALS: BP 150/79
[2017-04-12 02:20] LABS: APPEARANCE CLOUDY ((CLEAR)); BILIRUBIN NEGATIVE; BLOOD NEGATIVE; COLOR YELLOW ((YELLOW)); GLUCOSE (STRIP) >=500; KETONES NEGATIVE; LEUKOCYTES NEGATIVE; NITRITE NEGATIVE; PROTEIN (STRIP) NEGATIVE; SPECIFIC GRAVITY 1.015 (1.000-1.030); UROBILINOGEN 0.2 MG/DL (0.2-1.0)
[2017-04-12 02:48] LABS: EPITHELIAL CELLS RARE /HPF; RED BLOOD CELLS NONE SEEN /HPF (0-5); WHITE BLOOD CELLS NONE SEEN /HPF (0-5)
[2017-04-12 02:49] LABS: BACTERIA 3+ /HPF; MUCUS NONE SEEN /LPF
[2017-04-12 05:44] LABS: HEMATOCRIT 41.8 % (36.0-46.0); HEMOGLOBIN 14.1 G/DL (11.9-15.5); MCH 29.6 PG (29.0-34.0); MCHC 33.7 G/DL (30.0-36.0); MCV 87.8 FL (83-99); PLATELET COUNT 533 K/uL (156-360); RBC DIS.WIDTH-CV 13.2 % (11.8-14.6); RBC DIS.WIDTH-SD 42.7 % (39-53); RED BLOOD COUNT 4.76 M/uL (3.80-5.20); WHITE BLOOD COUNT 18.5 K/uL (4.1-10.2)
[2017-04-12 06:03] LABS: CREATININE 0.9 MG/DL (0.6-1.3); GFR ESTIMATE (CALCULATED) > 59 mL/min/; GLUCOSE 301 mg/dL (70-99)
[2017-04-12 06:05] LABS: CHLORIDE 90 MEQ/L (99-109); POTASSIUM 5.5 MEQ/L (3.7-5.4); SODIUM 127 MEQ/L (136-147); UREA NITROGEN (BUN) 31 mg/dL (9-23)
[2017-04-12 08:00] VITALS: BP 172/79
[2017-04-12 16:24] VITALS: BP 130/61
[2017-04-12 16:25] LABS: HEMATOCRIT 41.1 % (36.0-46.0); HEMOGLOBIN 13.7 G/DL (11.9-15.5); MCH 29.5 PG (29.0-34.0); MCHC 33.3 G/DL (30.0-36.0); MCV 88.4 FL (83-99); PLATELET COUNT 556 K/uL (156-360); RBC DIS.WIDTH-CV 13.3 % (11.8-14.6); RBC DIS.WIDTH-SD 43.1 % (39-53); RED BLOOD COUNT 4.65 M/uL (3.80-5.20); WHITE BLOOD COUNT 18.7 K/uL (4.1-10.2)
[2017-04-12 16:50] LABS: CHLORIDE 92 MEQ/L (99-109); POTASSIUM 5.2 MEQ/L (3.7-5.4); SODIUM 124 MEQ/L (136-147)
[2017-04-12 16:55] LABS: CREATININE 0.9 MG/DL (0.6-1.3); GFR ESTIMATE (CALCULATED) > 59 mL/min/; GLUCOSE 398 mg/dL (70-99); UREA NITROGEN (BUN) 33 mg/dL (9-23)
[2017-04-12 18:46] LABS: THYROTROPIN (TSH) 1.8 MIU/L (0.4-5.5)
[2017-04-12 23:20] LABS: CHLORIDE 98 mEq/L (99-109); SODIUM 127 mEq/L (136-147)
[2017-04-12 23:22] LABS: GLUCOSE 392 mg/dL (70-99)
[2017-04-12 23:25] LABS: CREATININE 0.8 mg/dL (0.6-1.3); GFR ESTIMATE (CALCULATED) > 59 mL/min/
[2017-04-12 23:26] LABS: UREA NITROGEN (BUN) 29 mg/dL (9-23)
[2017-04-13] VITALS: BP 160/73
[2017-04-13 06:21] LABS: BASOPHIL (%) 0.2 % (0-1); EOSINOPHIL (%) 0 % (0-5); HEMATOCRIT 40.3 % (36.0-46.0); HEMOGLOBIN 13.7 G/DL (11.9-15.5); LYMPHOCYTE (%) 9.5 % (15-42); LYMPHOCYTE COUNT 1.7 K/uL (1.0-2.8); MCH 29.8 PG (29.0-34.0); MCV 87.8 FL (83-99); MONOCYTE COUNT 0.9 K/uL (0-0.8); NEUTROPHIL (%) 82.3 % (45-76); NEUTROPHIL COUNT 14.9 K/uL (1.8-6.4); PLATELET COUNT 498 K/uL (156-360); RBC DIS.WIDTH-CV 13.3 % (11.8-14.6); RBC DIS.WIDTH-SD 42.5 % (39-53); RED BLOOD COUNT 4.59 M/uL (3.80-5.20); WHITE BLOOD COUNT 18.1 K/uL (4.1-10.2)
[2017-04-13 06:45] LABS: CHLORIDE 95 MEQ/L (99-109); CREATININE 0.7 MG/DL (0.6-1.3); GFR ESTIMATE (CALCULATED) > 59 mL/min/; GLUCOSE 273 mg/dL (70-99); POTASSIUM 5.1 MEQ/L (3.7-5.4); SODIUM 128 MEQ/L (136-147); UREA NITROGEN (BUN) 29 mg/dL (9-23)
[2017-04-13 07:16] VITALS: BP 129/53
[2017-04-13 15:06] VITALS: BP 188/84
[2017-04-13 23:35] VITALS: BP 154/72
== END 2017-04-14 01:58 | disposition short-term general hospital (02) | DRG 545 ==
LOC: EME 17:17 → 5SOUTH 04-02 05:05 → EDOF 04-02 05:05 → ENRESERV 04-02 05:08 → 5SOUTH 04-02 17:15
PROVIDERS: Emergency Medicine; Internal Medicine; Nurse Practitioner Family; Physician Assistant; Student in an Organized Health Care Education/Training Program
DX: M45.4 Ankylosing spondylitis of thoracic region (principal); M48.04 Spinal stenosis, thoracic region; M51.04 Intervertebral disc disorders with myelopathy, thoracic region; G82.20 Paraplegia, unspecified; M96.1 Postlaminectomy syndrome, not elsewhere classified; M62.82 Rhabdomyolysis; E86.0 Dehydration; E11.65 Type 2 diabetes mellitus with hyperglycemia; T38.0X5A Adverse effect of glucocorticoids and synthetic analogues, initial encounter; R00.0 Tachycardia, unspecified; R09.02 Hypoxemia; G97.82 Other postprocedural complications and disorders of nervous system; G96.19 Other disorders of meninges, not elsewhere classified; G03.9 Meningitis, unspecified; M46.04 Spinal enthesopathy, thoracic region; M25.78 Osteophyte, vertebrae; R33.9 Retention of urine, unspecified; G89.29 Other chronic pain; M79.7 Fibromyalgia; H35.30 Unspecified macular degeneration; E78.5 Hyperlipidemia, unspecified; I10 Essential (primary) hypertension; E24.9 Cushing's syndrome, unspecified; I34.1 Nonrheumatic mitral (valve) prolapse; K21.9 Gastro-esophageal reflux disease without esophagitis; R32 Unspecified urinary incontinence; F32.9 Major depressive disorder, single episode, unspecified; F41.9 Anxiety disorder, unspecified; G43.909 Migraine, unspecified, not intractable, without status migrainosus; E66.9 Obesity, unspecified; Z86.73 Personal history of transient ischemic attack (TIA), and cerebral infarction without residual deficits; Z86.711 Personal history of pulmonary embolism; I25.2 Old myocardial infarction; Z68.42 Body mass index [BMI] 45.0-49.9, adult; Z99.3 Dependence on wheelchair; Z79.891 Long term (current) use of opiate analgesic; Z91.81 History of falling; Z98.1 Arthrodesis status
CPT/HCPCS: 70450; 71275; 72131; 72146; 72148; 72200; 73522; 73630; 80048; 80048 91; 80053; 80076; 81003; 82533 91; 82550; 82550 91; 82553; 82948; 83930; 83935; 84300; 84443; 84484; 84550; 85025; 85027; 85651; 86038; 86140; 86812 90; 87077; 87086; 87186; 87502; 87651 90; 93970; 94640; 94799; 99202; 99281; 99285; J1100; J1170; J1644; J1815; J2270; J2405; J7030; J7040

== ENCOUNTER 2017-04-27 11:48 | Inpatient (IN) | payer OTHER ==
[~2017-04-27] VITALS: Ht 182.9 cm; Wt 91.8 kg
[~2017-04-27 11:48] MED LIST changes: +ACID REDUCER 1150 MG PO; +ALDACTONE25 MG PO; +BACTRIM,SEPT1 TABLE1 PO
[2017-04-27] MEDS ORDERED: NEURONTIN600 MG PO ×2 (13:26→13:29)
[2017-04-27] MEDS ORDERED: HEPARIN SO5000 UNIT4 SC (13:30)
[2017-04-27] MEDS ORDERED: HYDROCHLOROTHIA25 MG PO (13:31)
[2017-04-27] MEDS ORDERED: ATARAX10 MG PO (13:33)
[2017-04-27 13:34] VITALS: BP 138/71
[2017-04-27] MEDS ORDERED: ENULOSE10 GM/15 M PO (13:37)
[2017-04-27] MEDS ORDERED: METFORMIN HCL500 MG PO (13:37)
[2017-04-27] MEDS ORDERED: METOPROLOL SUC100 MG PO (13:40)
[2017-04-27] MEDS ORDERED: ROXICODONE15 MG PO (13:43)
[2017-04-27] MEDS ORDERED: KLOR-CON20 MEQ PO (13:47)
[2017-04-27] MEDS ORDERED: SENNA LAXATIVE8.6 MG PO (13:48)
[2017-04-27] MEDS ORDERED: ZANAFLEX4 MG PO (13:50)
[2017-04-27] MEDS ORDERED: ERGOCALCIF50000 UNIT PO (13:52)
[2017-04-27 15:55] VITALS: BP 109/64
[2017-04-28 00:19] VITALS: BP 123/59
[2017-04-28 05:40] LABS: HEMATOCRIT 25.9 % (36.0-46.0); MCH 28.6 PG (29.0-34.0); MCHC 31.7 G/DL (30.0-36.0); MCV 90.2 FL (83-99); RBC DIS.WIDTH-CV 19.9 % (11.8-14.6); RBC DIS.WIDTH-SD 62.5 % (39-53); WHITE BLOOD COUNT 4.1 K/uL (4.1-10.2)
[2017-04-28 05:41] LABS: HEMOGLOBIN 8.2 G/DL (11.9-15.5); RED BLOOD COUNT 2.87 M/uL (3.80-5.20)
[2017-04-28 06:04] LABS: ALBUMIN 3.3 G/DL (3.2-4.8); ALKALINE PHOSPHATASE 87 IU/L (3-129); ALT (GPT) 32 IU/L (3-49); AST (GOT) 42 IU/L (2-34); CHLORIDE 100 MEQ/L (99-109); CREATININE 0.6 MG/DL (0.6-1.3); GFR ESTIMATE (CALCULATED) > 59 mL/min/; GLUCOSE 201 mg/dL (70-99); POTASSIUM 3.5 MEQ/L (3.7-5.4); SODIUM 136 MEQ/L (136-147); TOTAL BILIRUBIN 0.4 MG/DL (0.0-1.0); TOTAL PROTEIN 5.9 G/DL (6.4-8.3); UREA NITROGEN (BUN) 15 mg/dL (9-23)
[2017-04-28 06:11] LABS: PLAT.SUFFICIENCY DECREASED
[2017-04-28 06:12] LABS: PLATELET COUNT 122 K/uL (156-360)
[2017-04-28 07:01] VITALS: BP 138/84
[2017-04-28 16:28] VITALS: BP 100/54
[2017-04-29 06:02] LABS: HEMOGLOBIN 8.2 G/DL (11.9-15.5); MCH 28.9 PG (29.0-34.0); MCHC 31.5 G/DL (30.0-36.0); MCV 91.5 FL (83-99); NRBC (%) 0.6 /100 WBC (0-0); PLATELET COUNT 116 K/uL (156-360); RBC DIS.WIDTH-CV 19.6 % (11.8-14.6); RBC DIS.WIDTH-SD 62.8 % (39-53); RED BLOOD COUNT 2.84 M/uL (3.80-5.20); WHITE BLOOD COUNT 5.2 K/uL (4.1-10.2)
[2017-04-29 06:25] LABS: CHLORIDE 100 MEQ/L (99-109); CREATININE 0.6 MG/DL (0.6-1.3); GFR ESTIMATE (CALCULATED) > 59 mL/min/; GLUCOSE 171 mg/dL (70-99); POTASSIUM 3.8 MEQ/L (3.7-5.4); SODIUM 138 MEQ/L (136-147); UREA NITROGEN (BUN) 12 mg/dL (9-23)
[2017-04-29 07:09] VITALS: BP 120/61
[2017-04-29 07:11] VITALS: BP 108/61
[2017-04-29 16:01] VITALS: BP 112/57
[2017-04-30 15:29] VITALS: BP 84/51
[2017-05-01 06:15] VITALS: BP 168/78
[2017-05-01 16:11] VITALS: BP 99/50
[2017-05-02 05:09] VITALS: BP 126/68
[2017-05-02 15:06] VITALS: BP 130/82
[2017-05-02] MEDS ORDERED: MORPHINE SULFAT30 M2 PO (15:09)
[2017-05-02] MEDS ORDERED: ZANAFLEX4 MG PO (15:09)
[2017-05-02] MEDS ORDERED: GABAPENTIN600 MG PO (15:11)
[2017-05-02] MEDS ORDERED: OXYCODONE HCL20 M1 PO (15:11)
[2017-05-02 20:08] LABS: APPEARANCE CLOUDY ((CLEAR)); BILIRUBIN NEGATIVE; BLOOD NEGATIVE; COLOR YELLOW ((YELLOW)); GLUCOSE (STRIP) NEGATIVE; KETONES NEGATIVE; LEUKOCYTES MODERATE; NITRITE POSITIVE; PROTEIN (STRIP) NEGATIVE; SPECIFIC GRAVITY 1.021 (1.000-1.030); UROBILINOGEN 0.2 MG/DL (0.2-1.0)
[2017-05-02 20:42] LABS: EPITHELIAL CELLS NONE SEEN /HPF; MUCUS NONE SEEN /LPF; RED BLOOD CELLS NONE SEEN /HPF (0-5); WHITE BLOOD CELLS TNTC /HPF (0-5)
[2017-05-02 20:43] LABS: BACTERIA 4+ /HPF
[2017-05-03 06:47] VITALS: BP 117/78
[2017-05-03 15:46] VITALS: BP 98/54
[2017-05-04 05:43] VITALS: BP 116/73
[2017-05-04 16:32] VITALS: BP 138/82
[2017-05-05 06:23] VITALS: BP 152/76
[2017-05-05 16:28] VITALS: BP 118/58
[2017-05-06 06:13] VITALS: BP 100/56
[2017-05-06 15:50] VITALS: BP 122/58
[2017-05-07 05:46] VITALS: BP 145/84
[2017-05-07 16:26] VITALS: BP 128/82
[2017-05-08 05:46] VITALS: BP 114/67
[2017-05-08 06:15] LABS: ALBUMIN 3.2 G/DL (3.2-4.8); ALKALINE PHOSPHATASE 101 IU/L (3-129); ALT (GPT) 27 IU/L (3-49); AST (GOT) 20 IU/L (2-34); CHLORIDE 100 MEQ/L (99-109); CREATININE 0.6 MG/DL (0.6-1.3); GFR ESTIMATE (CALCULATED) > 59 mL/min/; GLUCOSE 178 mg/dL (70-99); SODIUM 137 MEQ/L (136-147); TOTAL BILIRUBIN 0.2 MG/DL (0.0-1.0); TOTAL PROTEIN 5.1 G/DL (6.4-8.3); UREA NITROGEN (BUN) 10 mg/dL (9-23)
[2017-05-08 06:59] LABS: HEMATOCRIT 26.7 % (36.0-46.0); HEMOGLOBIN 8.3 G/DL (11.9-15.5); MCH 30.1 PG (29.0-34.0); MCHC 31.1 G/DL (30.0-36.0); NRBC (%) 0.5 /100 WBC (0-0); RBC DIS.WIDTH-CV 21.9 % (11.8-14.6); RBC DIS.WIDTH-SD 76.6 % (39-53); RED BLOOD COUNT 2.76 M/uL (3.80-5.20); WHITE BLOOD COUNT 5.9 K/uL (4.1-10.2)
[2017-05-08 07:04] LABS: MCV 96.7 FL (83-99); PLATELET COUNT 387 K/uL (156-360)
[2017-05-08 15:11] VITALS: BP 112/72
[2017-05-09 05:52] VITALS: BP 125/60
[2017-05-09 15:06] VITALS: BP 128/76
[2017-05-10 05:41] VITALS: BP 125/59
[2017-05-10 10:10] VITALS: BP 145/66
[2017-05-10] MEDS ORDERED: GABAPENTIN300 MG PO (11:37)
[2017-05-10] MEDS ORDERED: OXYCODONE HCL20 M1 PO (11:37)
[2017-05-10] MEDS ORDERED: MORPHINE SULFAT15 M1 PO (11:37)
== END 2017-05-10 14:30 | disposition home health service (06) | DRG 552 ==
LOC: 3WEST 11:48
PROVIDERS: Physical Medicine & Rehabilitation Pain Medicine
PROC: F07M7ZZ Manual Therapy Techniques Treatment of Musculoskeletal System - Whole Body (ICD-10-PCS; principal; 2017-04-27)
DX: M48.04 Spinal stenosis, thoracic region (principal); R26.9 Unspecified abnormalities of gait and mobility; M48.10 Ankylosing hyperostosis [Forestier], site unspecified; M47.9 Spondylosis, unspecified; I11.0 Hypertensive heart disease with heart failure; M45.9 Ankylosing spondylitis of unspecified sites in spine; M96.1 Postlaminectomy syndrome, not elsewhere classified; J45.909 Unspecified asthma, uncomplicated; G89.4 Chronic pain syndrome; E11.9 Type 2 diabetes mellitus without complications; M79.7 Fibromyalgia; S91.114A Laceration without foreign body of right lesser toe(s) without damage to nail, initial encounter; E24.9 Cushing's syndrome, unspecified; F41.9 Anxiety disorder, unspecified; H35.30 Unspecified macular degeneration; K21.9 Gastro-esophageal reflux disease without esophagitis; D62 Acute posthemorrhagic anemia; E66.9 Obesity, unspecified; N39.0 Urinary tract infection, site not specified; R29.6 Repeated falls; K58.9 Irritable bowel syndrome, unspecified; G47.30 Sleep apnea, unspecified; E87.6 Hypokalemia; E88.09 Other disorders of plasma-protein metabolism, not elsewhere classified; G89.18 Other acute postprocedural pain; G95.9 Disease of spinal cord, unspecified; Z68.41 Body mass index [BMI] 40.0-44.9, adult; W05.0XXA Fall from non-moving wheelchair, initial encounter; I34.1 Nonrheumatic mitral (valve) prolapse; N39.3 Stress incontinence (female) (male); B96.20 Unspecified Escherichia coli [E. coli] as the cause of diseases classified elsewhere; I45.6 Pre-excitation syndrome; B35.6 Tinea cruris; K59.00 Constipation, unspecified; G47.00 Insomnia, unspecified; G96.0 Cerebrospinal fluid leak; F22 Delusional disorders; M25.561 Pain in right knee; H91.90 Unspecified hearing loss, unspecified ear; I50.9 Heart failure, unspecified; I25.2 Old myocardial infarction; Z86.711 Personal history of pulmonary embolism; Z90.710 Acquired absence of both cervix and uterus; Z79.891 Long term (current) use of opiate analgesic; Z22.322 Carrier or suspected carrier of Methicillin resistant Staphylococcus aureus; Z82.49 Family history of ischemic heart disease and other diseases of the circulatory system; Z91.81 History of falling; Z86.73 Personal history of transient ischemic attack (TIA), and cerebral infarction without residual deficits
CPT/HCPCS: 71045; 73564; 74018; 74021; 80048; 80053; 81003; 82948; 85027; 87077; 87081; 87086; 87186; 87641; 94640; 97110 GO; 97530 GP; 99202; J0696; J1644

== ENCOUNTER 2017-06-10 12:08 | Emergency (ER) | payer OTHER ==
[~2017-06-10] VITALS: Ht 167.6 cm; Wt 115.2 kg
[~2017-06-10 12:08] MED LIST changes: +ENULOSE10 GM/15 M PO; +ERGOCALCIF50000 UNIT PO; +HEPARIN SO5000 UNIT4 SC; +KLOR-CON20 MEQ PO; +ROXICODONE15 MG PO; +SENNA LAXATIVE8.6 MG PO
[2017-06-10 12:28] LABS: BASOPHIL (%) 0.4 % (0-1); EOSINOPHIL COUNT 0.2 K/uL (0-0.3); HEMATOCRIT 35.3 % (36.0-46.0); HEMOGLOBIN 11.4 G/DL (11.9-15.5); IMMATURE GRANULOCYTE (%) 0.2 % (0.0-0.7); LYMPHOCYTE (%) 42.1 % (15-42); MCH 29.2 PG (29.0-34.0); MCHC 32.3 G/DL (30.0-36.0); MCV 90.5 FL (83-99); MONOCYTE (%) 4.3 % (3-12); MONOCYTE COUNT 0.2 K/uL (0-0.8); NEUTROPHIL COUNT 2.3 K/uL (1.8-6.4); PLATELET COUNT 291 K/uL (156-360); RBC DIS.WIDTH-CV 15.5 % (11.8-14.6); RBC DIS.WIDTH-SD 51.2 % (39-53); WHITE BLOOD COUNT 4.8 K/uL (4.1-10.2)
[2017-06-10 12:37] LABS: CHLORIDE 103 mEq/L (99-109); SODIUM 140 mEq/L (136-147)
[2017-06-10 12:39] LABS: GLUCOSE 136 mg/dL (70-99)
[2017-06-10 12:43] LABS: CREATININE 0.7 mg/dL (0.6-1.3); GFR ESTIMATE (CALCULATED) > 59 mL/min/
[2017-06-10 12:44] LABS: UREA NITROGEN (BUN) 7 mg/dL (9-23)
[2017-06-10 14:08] LABS: APPEARANCE CLEAR ((CLEAR)); BILIRUBIN NEGATIVE; BLOOD NEGATIVE; COLOR YELLOW ((YELLOW)); GLUCOSE (STRIP) NEGATIVE; KETONES NEGATIVE; LEUKOCYTES NEGATIVE; NITRITE NEGATIVE; PROTEIN (STRIP) NEGATIVE; SPECIFIC GRAVITY 1.013 (1.000-1.030); UROBILINOGEN 0.2 MG/DL (0.2-1.0)
[2017-06-10 14:40] VITALS: BP 133/100
== END 2017-06-10 14:43 | disposition home or self-care (01) ==
LOC: EME → EDBD 12:08 → EME 12:08
PROVIDERS: Emergency Medicine
DX: I10 Essential (primary) hypertension (principal); E78.5 Hyperlipidemia, unspecified; I25.2 Old myocardial infarction; F32.9 Major depressive disorder, single episode, unspecified; F41.9 Anxiety disorder, unspecified; K21.9 Gastro-esophageal reflux disease without esophagitis; M79.7 Fibromyalgia; Z85.828 Personal history of other malignant neoplasm of skin; Z79.84 Long term (current) use of oral hypoglycemic drugs; Z88.8 Allergy status to other drugs, medicaments and biological substances
CPT/HCPCS: 80048; 81003; 85025; 99281; 99285

== ENCOUNTER 2017-08-13 13:55 | Inpatient (IN) | payer OTHER ==
[~2017-08-13] VITALS: Ht 165.1 cm; Wt 109.9 kg
[2017-08-13 14:48] LABS: BASOPHIL (%) 0.1 % (0-1); EOSINOPHIL (%) 0.3 % (0-5); HEMATOCRIT 35.8 % (36.0-46.0); HEMOGLOBIN 11.8 G/DL (11.9-15.5); IMMATURE GRANULOCYTE (%) 0.4 % (0.0-0.7); LYMPHOCYTE (%) 28.1 % (15-42); MCH 28.3 PG (29.0-34.0); MCV 85.9 FL (83-99); MONOCYTE (%) 3.8 % (3-12); MONOCYTE COUNT 0.3 K/uL (0-0.8); NEUTROPHIL (%) 67.3 % (45-76); NEUTROPHIL COUNT 4.7 K/uL (1.8-6.4); PLATELET COUNT 342 K/uL (156-360); RBC DIS.WIDTH-CV 14.9 % (11.8-14.6); RED BLOOD COUNT 4.17 M/uL (3.80-5.20); WHITE BLOOD COUNT 7.1 K/uL (4.1-10.2)
[2017-08-13 14:55] LABS: CHLORIDE 104 mEq/L (99-109); POTASSIUM 3.3 mEq/L (3.7-5.4); SODIUM 140 mEq/L (136-147)
[2017-08-13 14:57] LABS: GLUCOSE 165 mg/dL (70-99)
[2017-08-13 15:01] LABS: CREATININE 0.8 mg/dL (0.6-1.3); GFR ESTIMATE (CALCULATED) > 59 mL/min/
[2017-08-13 15:02] LABS: UREA NITROGEN (BUN) 11 mg/dL (9-23)
[2017-08-13] MEDS ORDERED: NEURONTIN800 MG PO (16:41)
[2017-08-13] MEDS ORDERED: LOPRESSOR50 MG PO ×2 (16:43→21:06)
[2017-08-13] MEDS ORDERED: OXYCODONE HCL20 M1 PO (16:44)
[2017-08-13] MEDS ORDERED: ZANAFLEX4 MG PO (16:46)
[2017-08-13] MEDS ORDERED: ADVIL200 MG PO (16:47)
[2017-08-13 17:20] LABS: PHOSPHORUS 2.3 mg/dL (2.5-4.9)
[2017-08-13 18:02] VITALS: BP 190/91
[2017-08-13 21:15] VITALS: BP 170/81
[2017-08-13 21:27] LABS: C DIFF TOXIN NEGATIVE (NEGATIVE)
[2017-08-13 23:55] VITALS: BP 135/80
[2017-08-14 02:06] LABS: APPEARANCE SL.HAZY ((CLEAR)); BILIRUBIN NEGATIVE; BLOOD NEGATIVE; COLOR YELLOW ((YELLOW)); GLUCOSE (STRIP) >=500; KETONES 20; LEUKOCYTES NEGATIVE; NITRITE NEGATIVE; PROTEIN (STRIP) 30; SPECIFIC GRAVITY 1.025 (1.000-1.030); UROBILINOGEN 0.2 MG/DL (0.2-1.0)
[2017-08-14 02:47] LABS: BACTERIA RARE /HPF; EPITHELIAL CELLS 2+ /HPF; MUCUS TRACE /LPF; RED BLOOD CELLS 0-5 /HPF (0-5); UCUL ADDED? NO; WHITE BLOOD CELLS 0-5 /HPF (0-5)
[2017-08-14 03:45] VITALS: BP 130/62
[2017-08-14 05:51] LABS: BASOPHIL (%) 0.1 % (0-1); EOSINOPHIL (%) 0 % (0-5); HEMATOCRIT 34.7 % (36.0-46.0); HEMOGLOBIN 11.2 G/DL (11.9-15.5); IMMATURE GRANULOCYTE (%) 0.9 % (0.0-0.7); LYMPHOCYTE (%) 17.2 % (15-42); LYMPHOCYTE COUNT 1.4 K/uL (1.0-2.8); MCH 27.9 PG (29.0-34.0); MCHC 32.3 G/DL (30.0-36.0); MCV 86.5 FL (83-99); MONOCYTE (%) 1.6 % (3-12); MONOCYTE COUNT 0.1 K/uL (0-0.8); NEUTROPHIL (%) 80.2 % (45-76); NEUTROPHIL COUNT 6.3 K/uL (1.8-6.4); NRBC (%) 0.3 /100 WBC (0-0); PLATELET COUNT 363 K/uL (156-360); RBC DIS.WIDTH-CV 14.6 % (11.8-14.6); RBC DIS.WIDTH-SD 46.5 % (39-53); RED BLOOD COUNT 4.01 M/uL (3.80-5.20); WHITE BLOOD COUNT 7.9 K/uL (4.1-10.2)
[2017-08-14 06:14] LABS: ALBUMIN 3.5 G/DL (3.2-4.8); ALKALINE PHOSPHATASE 87 IU/L (3-129); ALT (GPT) 17 IU/L (3-49); AST (GOT) 15 IU/L (2-34); CHLORIDE 107 MEQ/L (99-109); CREATININE 0.7 MG/DL (0.6-1.3); DIRECT BILIRUBIN 0.1 mg/dL (0.0-0.3); GFR ESTIMATE (CALCULATED) > 59 mL/min/; GLUCOSE 211 mg/dL (70-99); SODIUM 140 MEQ/L (136-147); TOTAL BILIRUBIN 0.3 MG/DL (0.0-1.0); UREA NITROGEN (BUN) 13 mg/dL (9-23)
[2017-08-14 06:15] LABS: POTASSIUM 4.4 MEQ/L (3.7-5.4)
[2017-08-14 07:13] VITALS: BP 132/73
[2017-08-14 09:36] LABS: HEMOGLOBIN A1c (GLYCOHEMOGLOB) 7.3 % (Below 5.7)
[2017-08-14 11:26] VITALS: BP 143/93
[2017-08-14 15:31] VITALS: BP 151/64
[2017-08-14 19:34] VITALS: BP 158/72
[2017-08-14 23:35] VITALS: BP 160/73
[2017-08-15 03:53] VITALS: BP 137/65
[2017-08-15 07:51] VITALS: BP 172/72
[2017-08-15 11:08] VITALS: BP 111/56
[2017-08-16 00:29] VITALS: BP 152/70
[2017-08-16 08:00] VITALS: BP 191/89
[2017-08-16 16:00] VITALS: BP 182/81
[2017-08-16 21:49] VITALS: BP 148/74
[2017-08-17] VITALS: BP 164/87
[2017-08-17 07:26] VITALS: BP 128/59
[2017-08-17] MEDS ORDERED: MUCINEX600 MG PO (13:48)
[2017-08-17] MEDS ORDERED: PREDNISONE20 MG PO (13:48)
[2017-08-17] MEDS ORDERED: PROBIOTIC1 EAC1 PO (13:48)
[2017-08-17] MEDS ORDERED: LEVAQUIN750 MG PO (13:48)
[2017-08-17] MEDS ORDERED: BENZONATATE100 MG PO (13:48)
[2017-08-17] MEDS ORDERED: METFORMIN HCL500 MG PO (13:58)
== END 2017-08-17 14:43 | disposition home or self-care (01) | DRG 189 ==
LOC: EME 13:55 → EDOF 16:17 → 5SOUTH 16:17 → ENRESERV 16:22 → 5SOUTH 17:33
PROVIDERS: Emergency Medicine; Internal Medicine
DX: J96.01 Acute respiratory failure with hypoxia (principal); J14 Pneumonia due to Hemophilus influenzae; M46.20 Osteomyelitis of vertebra, site unspecified; E78.5 Hyperlipidemia, unspecified; J44.0 Chronic obstructive pulmonary disease with (acute) lower respiratory infection; E87.6 Hypokalemia; E66.2 Morbid (severe) obesity with alveolar hypoventilation; E11.9 Type 2 diabetes mellitus without complications; M79.7 Fibromyalgia; G89.29 Other chronic pain; I10 Essential (primary) hypertension; Z86.711 Personal history of pulmonary embolism; Z87.01 Personal history of pneumonia (recurrent); Z68.41 Body mass index [BMI] 40.0-44.9, adult; Z85.828 Personal history of other malignant neoplasm of skin; M45.9 Ankylosing spondylitis of unspecified sites in spine; I34.1 Nonrheumatic mitral (valve) prolapse; Z79.84 Long term (current) use of oral hypoglycemic drugs
CPT/HCPCS: 71045; 71046; 71250; 80048; 80076; 81003; 82948; 83036; 83605; 83735; 84100; 85025; 87040; 87070; 87077; 87181; 87185; 87205; 87449; 87493; 87502; 93005; 94640; 94640 76; 94760; 94799; 99202; 99281; 99285; J1200; J1652; J1956; J2020; J2405; J2543; J2930; J3370; J7030; J7050; J7512; S0028

== ENCOUNTER 2017-10-25 12:24 | Emergency (ER) | payer OTHER ==
[~2017-10-25] VITALS: Ht 165.1 cm; Wt 112.2 kg
[~2017-10-25 12:24] MED LIST changes: +ADVIL200 MG PO; +BENZONATATE100 MG PO; +MUCINEX600 MG PO; +PROBIOTIC1 EAC1 PO
[2017-10-25 12:52] LABS: INTER. NORMALIZED RATIO 1.2
[2017-10-25 12:55] LABS: PTT 33.6 SEC (25-37)
[2017-10-25 13:11] LABS: AMYLASE 35 IU/L (1-118)
[2017-10-25 13:17] LABS: LIPASE 31 U/L (1.0-51.0)
[2017-10-25 13:21] LABS: TROP-I INTERPRETATION NEGATIVE; TROPONIN-I < 0.01 ng/mL (0.0-0.30)
[2017-10-25 15:13] LABS: HEMATOCRIT 38.3 % (36.0-46.0); HEMOGLOBIN 12.9 G/DL (11.9-15.5); MCH 29.1 PG (29.0-34.0); MCHC 33.7 G/DL (30.0-36.0); MCV 86.3 FL (83-99); PLATELET COUNT 299 K/uL (156-360); RBC DIS.WIDTH-CV 15.2 % (11.8-14.6); RBC DIS.WIDTH-SD 47.9 % (39-53); RED BLOOD COUNT 4.44 M/uL (3.80-5.20); WHITE BLOOD COUNT 6.9 K/uL (4.1-10.2)
[2017-10-25 15:39] LABS: CHLORIDE 103 MEQ/L (99-109); SODIUM 140 MEQ/L (136-147)
[2017-10-25 15:45] LABS: CREATININE 0.8 MG/DL (0.6-1.3); GFR ESTIMATE (CALCULATED) > 59 mL/min/; GLUCOSE 119 mg/dL (70-99); UREA NITROGEN (BUN) 14 mg/dL (9-23)
[2017-10-25 16:54] LABS: APPEARANCE SL.HAZY ((CLEAR)); BILIRUBIN NEGATIVE; BLOOD SMALL; COLOR YELLOW ((YELLOW)); GLUCOSE (STRIP) NEGATIVE; KETONES NEGATIVE; LEUKOCYTES NEGATIVE; NITRITE NEGATIVE; PROTEIN (STRIP) 30; SPECIFIC GRAVITY 1.025 (1.000-1.030); UROBILINOGEN 0.2 MG/DL (0.2-1.0)
[2017-10-25 16:59] LABS: BACTERIA NONE SEEN /HPF; EPITHELIAL CELLS 2+ /HPF; MUCUS TRACE /LPF; RED BLOOD CELLS 0-5 /HPF (0-5); WHITE BLOOD CELLS 0-5 /HPF (0-5)
[2017-10-25] MEDS ORDERED: PERCOCET 5/31 TABLET PO (20:54)
[2017-10-25] MEDS ORDERED: BACTRIM,SEPT1 TABLET PO (20:54)
[2017-10-25 21:16] VITALS: BP 156/98
[2017-10-26 08:45] LABS: AMPHETAMINE NEGATIVE (500 ng/mL); BARBITURATES NEGATIVE (200 ng/mL); BENZODIAZEPINES NEGATIVE (150 ng/mL); BUPRENORPHINE NEGATIVE (10 ng/mL); COCAINE NEGATIVE (150 ng/mL); METHADONE NEGATIVE (200 ng/mL); METHAMPHETAMINE NEGATIVE (500 ng/mL); OPIATES (MORPHINE) PRESUMPTIVE POSITIVE (100 ng/mL); OXYCODONE NEGATIVE (100 ng/mL); PHENCYCLIDINE NEGATIVE (25 ng/mL); PROPOXYPHENE NEGATIVE (300 ng/mL); THC CANNABINOIDS NEGATIVE (50 ng/mL); TRICYCLIC ANTIDEPRESSANTS PRESUMPTIVE POSITIVE (300 ng/mL)
== END 2017-10-25 21:29 | disposition home or self-care (01) ==
LOC: EME 12:24
PROVIDERS: Family Medicine
DX: M54.9 Dorsalgia, unspecified (principal); R51 Headache; L97.819 Non-pressure chronic ulcer of other part of right lower leg with unspecified severity; I10 Essential (primary) hypertension; E78.5 Hyperlipidemia, unspecified; K21.9 Gastro-esophageal reflux disease without esophagitis; M79.7 Fibromyalgia; K58.9 Irritable bowel syndrome, unspecified; M41.9 Scoliosis, unspecified; H35.30 Unspecified macular degeneration; G43.909 Migraine, unspecified, not intractable, without status migrainosus; F32.9 Major depressive disorder, single episode, unspecified; F41.9 Anxiety disorder, unspecified; I25.2 Old myocardial infarction; Z86.73 Personal history of transient ischemic attack (TIA), and cerebral infarction without residual deficits; Z85.828 Personal history of other malignant neoplasm of skin; Z86.14 Personal history of Methicillin resistant Staphylococcus aureus infection; Z90.49 Acquired absence of other specified parts of digestive tract; Z90.710 Acquired absence of both cervix and uterus; Z88.8 Allergy status to other drugs, medicaments and biological substances; Z91.018 Allergy to other foods
CPT/HCPCS: 70450; 80048; 81003; 82150; 83690; 84484; 84999; 85027; 85610; 85730; 93005; 99281; 99285; J0780; J1200; J3010; J7040